=== PATIENT | female | born 1950 | race Caucasian/White ===

== ENCOUNTER 2017-07-17 17:43 | Emergency (ER) | payer OTHER ==
[2017-07-17] MEDS: KETOROLAC 30 MG INJ IM (19:22)
== END 2017-07-17 21:27 | disposition home or self-care (01) ==
LOC: FTE 17:43
DX: M54.9 Dorsalgia, unspecified (principal); M54.32 Sciatica, left side; I10 Essential (primary) hypertension
CPT/HCPCS: 96372; 99284-25